=== PATIENT | female | born 1975 | race Two or more races ===

== ENCOUNTER 2024-11-20 11:26 | Emergency (ER) | payer OTHER ==
[~2024-11-20] VITALS: Ht 152.4 cm; Wt 56.2 kg
[2024-11-20] MEDS ORDERED: PROMETRIUM200 MG PO (12:37)
[2024-11-20] MEDS ORDERED: 0.9 % SODIUM CHLORIDE 1,000 ML IV ONE (13:45)
[2024-11-20 16:07] LABS: BASO % 0.7 % (0.1-1.2); EOS # 0.18 (0.04-0.54); EOS % 2.5 % (0.7-7.0); HEMATOCRIT 39.4 % (34.1-44.9); HEMOGLOBIN 13.1 g/dL (11.2-15.7); LYMPH # 1.56 (1.18-3.74); LYMPH % 21.4 % (19.3-53.1); MEAN CORPUSCULAR HEMOGLOBIN 27.6 pg (25.6-32.2); MONO % 9.6 % (4.7-12.5); NEUT % 65.7 % (34.0-71.1); PLATELET COUNT 376 K/uL (163-369); RED BLOOD COUNT 4.75 M/uL (3.93-5.22); RED CELL DISTRIBUTION WIDTH 13.9 % (11.6-14.4)
[2024-11-20 16:25] LABS: COVID-19 AG NEGATIVE (NEGATIVE)
[2024-11-20 16:26] LABS: INFLUENZA A AG NEGATIVE (NEGATIVE); INFLUENZA B AG NEGATIVE (NEGATIVE)
[2024-11-20 16:27] LABS: BILIRUBIN TOTAL 0.58 mg/dL (0.3-1.2); CALCIUM 9.7 mg/dL (8.5-10.1); CREATININE SERUM 0.63 mg/dL (0.55-1.02); GFR 100.02; POTASSIUM 4.37 mEq/L (3.5-5.1)
[2024-11-20 19:15] LABS: PH,URINE 5.5 (5.0-8.0); URINE APPEARANCE Cloudy; URINE BILIRRUBIN Negative (NEGATIVE); URINE BLOOD Moderate; URINE COLOR Yellow; URINE GLUCOSE Negative (NEGATIVE); URINE LEUKOCYTE Large; URINE NITRATE Negative; URINE PROTEIN Negative (NEGATIVE); URINE UROBILINOGEN 0.2 E.U./dl
[2024-11-20 19:19] LABS: URINE BACTERIA 2606.8 uL (0.0-1933); URINE EPITHELIAL CELLS 87.3 uL (0.0-38.8); URINE RBC 36.5 uL (0.0-20.8); URINE WBC 645.9 uL (0.0-23.2)
[2024-11-20 19:20] LABS: URINE KETONE 80 (NEGATIVE)
[2024-11-20] MEDS ORDERED: FAMOTIDINE/PF 20 MG/2 ML VIAL IV STA (20:15)
[2024-11-20] MEDS ORDERED: ONDANSETRON HCL 2 MG/ML VIAL IV STA (20:15)
[2024-11-20] MEDS ORDERED: FAMOTIDINE/PF 20 MG/2 ML VIAL ONE (20:16)
[2024-11-20] MEDS ORDERED: ONDANSETRON HCL 2 MG/ML VIAL ONE (20:17)
[2024-11-20] MEDS ORDERED: ONDANSETRON HCL4 MG PO (20:23)
[2024-11-20] MEDS ORDERED: OMEPRAZOLE40 MG PO (20:23)
[2024-11-20] MEDS ORDERED: PEPCID40 MG PO (20:23)
== END 2024-11-20 20:34 | disposition home or self-care (01) ==
LOC: ER 11:26
PROVIDERS: Preventive Medicine Public Health & General Preventive Medicine
DX: R10.9 Unspecified abdominal pain (principal); K29.70 Gastritis, unspecified, without bleeding; N39.0 Urinary tract infection, site not specified; Z20.822 Contact with and (suspected) exposure to COVID-19